=== PATIENT | female | born 1985 | race Caucasian/White ===

== ENCOUNTER 2020-04-25 22:13 | Emergency (ER) | payer BC ==
[~2020-04-25] VITALS: Ht 162.6 cm; Wt 60.0 kg
[2020-04-25 22:50] LABS: CLARITY URINE CLEAR (CLEAR); COLOR URINE YELLOW (YELLOW); KETONES URINE NEGATIVE (NEGATIVE); LEUKOCYTE ESTERASE URINE NEGATIVE (NEGATIVE); NITRITE URINE NEGATIVE (NEGATIVE); OCCULT BLOOD URINE NEGATIVE (NEGATIVE); PH URINE 7.5 (4.5-8.0); PROTEIN URINE NEGATIVE (NEGATIVE); SPECIFIC GRAVITY URINE 1.014 (1.005-1.030); UROBILINOGEN URINE 0.2 E.U./dL (0.2-1.0)
[2020-04-25 23:15] LABS: CHLORIDE 106 mEq/L (98-107)
[2020-04-25 23:16] LABS: EOSINOPHILS % 2.5 % (0.0-5.0); HEMATOCRIT. 36.5 % (36.0-48.0); HEMOGLOBIN. 13.2 g/dL (12.0-16.0); LYMPHOCYTES % 19.2 % (20.0-50.0); MEAN CORPUSCULAR HEMOGLOBIN 32.3 pg (28.0-32.0); MEAN CORPUSCULAR VOLUME 89.3 fL (81.0-99.0); MEAN PLATELET VOLUME 8.3 fl (7.4-10.4); NEUTROPHILS % 71.3 % (40.0-76.0); PLATELET 235 x1000/uL (130-400); RED BLOOD CELL COUNT 4.09 mill/uL (4.2-5.4); RED CELL DISTRIBUTION WIDTH 13.2 % (11.6-14.6)
[2020-04-25 23:43] LABS: B-HCG QUANTITATIVE 70872 mIU/mL (<3)
[2020-04-26 00:45] VITALS: BP 102/55
== END 2020-04-26 00:59 | disposition home or self-care (01) ==
LOC: ER 22:13
DX: O99.612 Diseases of the digestive system complicating pregnancy, second trimester (principal); K80.80 Other cholelithiasis without obstruction; O26.892 Other specified pregnancy related conditions, second trimester; R03.0 Elevated blood-pressure reading, without diagnosis of hypertension; Z3A.14 14 weeks gestation of pregnancy; O09.522 Supervision of elderly multigravida, second trimester
CPT/HCPCS: 36415; 76705; 76801; 80053; 81003; 84702; 85025; 86850; 86900; 99284

== ENCOUNTER 2020-05-08 14:03 | Inpatient (IN) | payer BC ==
[~2020-05-08] VITALS: Ht 154.9 cm; Wt 70.8 kg
[2020-05-08] MEDS ORDERED: ACETAMINOPHEN 325MG TABLET PO STA (14:49)
[2020-05-08] MEDS ORDERED: ONDANSETRON 4MG ODT PO STA (14:49)
[2020-05-08 15:41] LABS: CHLORIDE 106 mEq/L (98-107); HEMATOCRIT. 38.9 % (36.0-48.0); HEMOGLOBIN. 13.3 g/dL (12.0-16.0); MEAN CORPUSCULAR HEMOGLOBIN 30.6 pg (28.0-32.0); MEAN CORPUSCULAR VOLUME 89.3 fL (81.0-99.0); MEAN PLATELET VOLUME 8.6 fl (7.4-10.4); PLATELET 244 x1000/uL (130-400); RED BLOOD CELL COUNT 4.36 mill/uL (4.2-5.4); RED CELL DISTRIBUTION WIDTH 13.2 % (11.6-14.6)
[2020-05-08 15:42] LABS: CLARITY URINE CLEAR (CLEAR); COLOR URINE DK YELLOW (YELLOW); KETONES URINE 1+ (NEGATIVE); LEUKOCYTE ESTERASE URINE NEGATIVE (NEGATIVE); NITRITE URINE NEGATIVE (NEGATIVE); OCCULT BLOOD URINE NEGATIVE (NEGATIVE); PH URINE 7.5 (4.5-8.0); PROTEIN URINE NEGATIVE (NEGATIVE); SPECIFIC GRAVITY URINE 1.022 (1.005-1.030)
[2020-05-08 16:22] LABS: PLATELET ESTIMATE NORMAL
[2020-05-08] MEDS ORDERED: SODIUM CHLORIDE 0.9% 1,000 ML IV ONE (17:00)
[2020-05-08 17:21] LABS: B-HCG QUANTITATIVE 40051 mIU/mL (<3)
[2020-05-08 23:26] VITALS: BP 100/57
[2020-05-09] VITALS: BP 100/57
[2020-05-09] MEDS ORDERED: ONDANSETRON HCL 4MG/2ML INJ IV PRN (00:15)
[2020-05-09] MEDS ORDERED: ACETAMINOPHEN 325MG TABLET PO PRN (00:15)
[2020-05-09] MEDS: DEXT 5%/0.45% NACL KCL 20MEQ/L 1,000 ML IV SCH ×2 (01:39→12:07)
[2020-05-09] MEDS: CEFTRIAXONE 1,000 MG in DEXTROSE 5% WATER 50 ML IV SCH ×2 (01:39→02:18)
[2020-05-09 04:00] VITALS: BP 92/51
[2020-05-09 06:57] LABS: BASOPHILS % 0.7 % (0.0-2.0); EOSINOPHILS % 2.1 % (0.0-5.0); HEMATOCRIT. 34.8 % (36.0-48.0); LYMPHOCYTES % 20.8 % (20.0-50.0); MEAN CORPUSCULAR HEMOGLOBIN 30.8 pg (28.0-32.0); MEAN CORPUSCULAR VOLUME 89.6 fL (81.0-99.0); MEAN PLATELET VOLUME 8.4 fl (7.4-10.4); MONOCYTES % 5.9 % (2.0-8.0); NEUTROPHILS % 70.5 % (40.0-76.0); PLATELET 218 x1000/uL (130-400); RED BLOOD CELL COUNT 3.88 mill/uL (4.2-5.4); RED CELL DISTRIBUTION WIDTH 13.4 % (11.6-14.6)
[2020-05-09 07:17] LABS: CHLORIDE 109 mEq/L (98-107)
[2020-05-09 07:29] LABS: LDL CHOLESTEROL 91 mg/dL (5-100)
[2020-05-09 07:31] LABS: HDL CHOLESTEROL 94 mg/dL (40-59)
[2020-05-09 08:00] VITALS: BP 98/51
[2020-05-09] MEDS ORDERED: CEFTRIAXONE 1 G PREMIX 50 ML IV SCH (09:00)
[2020-05-09] MEDS: PRENATAL VIT/FE FUMARATE/FA TABLET PO SCH (09:21)
[2020-05-09 09:56] LABS: *AMPHETAMINES SCREEN URINE NEGATIVE (NEGATIVE); *BARBITURATES SCREEN URINE NEGATIVE (NEGATIVE); *BENZODIAZEPINES SCREEN URINE NEGATIVE (NEGATIVE); *COCAINE SCREEN URINE NEGATIVE (NEGATIVE)
[2020-05-09 09:57] LABS: CANNABINOID URINE SCREEN NEGATIVE (NEGATIVE); METHADONE URINE SCREEN NEGATIVE (NEGATIVE); OPIATES URINE SCREEN NEGATIVE (NEGATIVE); PHENCYCLIDINE URINE SCREEN NEGATIVE (NEGATIVE)
[2020-05-09 12:00] VITALS: BP 94/52
[2020-05-09 16:00] VITALS: BP 96/55
[2020-05-09 20:00] VITALS: BP 98/53
[2020-05-10] VITALS: BP 101/56
[2020-05-10] MEDS: DEXT 5%/0.45% NACL KCL 20MEQ/L 1,000 ML IV SCH ×2 (01:06→08:07)
[2020-05-10] MEDS: CEFTRIAXONE 1,000 MG in DEXTROSE 5% WATER 50 ML IV SCH (01:07)
[2020-05-10 04:00] VITALS: BP 95/45
[2020-05-10 06:23] LABS: BASOPHILS % 0.9 % (0.0-2.0); EOSINOPHILS % 3.4 % (0.0-5.0); HEMOGLOBIN. 12.3 g/dL (12.0-16.0); LYMPHOCYTES % 23.7 % (20.0-50.0); MEAN CORPUSCULAR HEMOGLOBIN 30.7 pg (28.0-32.0); MEAN CORPUSCULAR VOLUME 90.1 fL (81.0-99.0); MEAN PLATELET VOLUME 8.4 fl (7.4-10.4); MONOCYTES % 7.1 % (2.0-8.0); NEUTROPHILS % 64.9 % (40.0-76.0); PLATELET 237 x1000/uL (130-400); RED CELL DISTRIBUTION WIDTH 13.3 % (11.6-14.6)
[2020-05-10 06:36] LABS: CHLORIDE 110 mEq/L (98-107)
[2020-05-10 08:00] VITALS: BP 96/49
[2020-05-10] MEDS: PRENATAL VIT/FE FUMARATE/FA TABLET PO SCH (09:52)
[2020-05-10 12:00] VITALS: BP 99/57
[2020-05-10 16:00] VITALS: BP 107/59
[2020-05-10 20:00] VITALS: BP 96/50
[2020-05-11] VITALS: BP 104/45
[2020-05-11] MEDS: CEFTRIAXONE 1,000 MG in DEXTROSE 5% WATER 50 ML IV SCH (00:44)
[2020-05-11] MEDS: DEXT 5%/0.45% NACL 1000ML 1,000 ML IV SCH ×2 (00:45→09:53)
[2020-05-11 04:00] VITALS: BP 103/46
[2020-05-11 06:47] LABS: HEMATOCRIT 36.1 % (36.0-48.0); HEMOGLOBIN 12.5 g/dL (12.0-16.0); MEAN CORPUSCULAR HEMOGLOBIN 31.2 pg (28.0-32.0); MEAN CORPUSCULAR VOLUME 90.3 fL (81.0-99.0); PLATELET 223 x1000/uL (130-400); RED BLOOD CELL COUNT 3.99 mill/uL (4.2-5.4); RED CELL DISTRIBUTION WIDTH 13.2 % (11.6-14.6)
[2020-05-11 07:01] LABS: CHLORIDE 107 mEq/L (98-107)
[2020-05-11 08:00] VITALS: BP 107/56
[2020-05-11] MEDS: PRENATAL VIT/FE FUMARATE/FA TABLET PO SCH (08:08)
[2020-05-11 12:00] VITALS: BP 98/60
[2020-05-11] MEDS ORDERED: BUPIVACAINE HCL/PF 0.5% (5MG/ML) 10ML ONE (14:01)
[2020-05-11] MEDS ORDERED: LIDOCAINE HCL 1% 20ML VIAL (Pyxis) INJ ONE (14:01)
[2020-05-11 16:00] VITALS: BP 95/52
[2020-05-11 20:00] VITALS: BP 114/63
== END 2020-05-11 21:40 | disposition left against medical advice (07) | DRG 831 ==
LOC: ER 14:03 → 6EST 18:43 → EDBEDREQ 18:49 → EDBEDREQTM 18:49 → ENRESERV 20:21
PROVIDERS: ADMIT Internal Medicine; ATTEND Internal Medicine
DX: O26.612 Liver and biliary tract disorders in pregnancy, second trimester (principal); K85.10 Biliary acute pancreatitis without necrosis or infection; E87.1 Hypo-osmolality and hyponatremia; O98.312 Other infections with a predominantly sexual mode of transmission complicating pregnancy, second trimester; O99.282 Endocrine, nutritional and metabolic diseases complicating pregnancy, second trimester; K80.20 Calculus of gallbladder without cholecystitis without obstruction; R74.0 Nonspecific elevation of levels of transaminase and lactic acid dehydrogenase [LDH]; A63.0 Anogenital (venereal) warts; Z53.21 Procedure and treatment not carried out due to patient leaving prior to being seen by health care provider; Z3A.16 16 weeks gestation of pregnancy; Z88.8 Allergy status to other drugs, medicaments and biological substances; Z03.818 Encounter for observation for suspected exposure to other biological agents ruled out
CPT/HCPCS: 36415; 76705; 76805; 80048; 80053; 80061; 80076; 80305; 81003; 84702; 85025; 85027; 87635; 93005; 96365; 99285; J0696; J3490; J7030; J7060; Q0162